=== PATIENT | male | born 1990 | race Caucasian/White ===

== ENCOUNTER 2021-12-16 06:00 | Emergency (ER) | payer OTHER ==
[~2021-12-16] VITALS: Ht 177.8 cm; Wt 97.5 kg
[2021-12-17] MEDS ORDERED: Prednisone50 MG PO (06:47)
[2021-12-17] MEDS ORDERED: TRIA15CR3 TOP (06:47)
== END 2021-12-16 07:58 | disposition home or self-care (01) ==
LOC: ER 06:00
DX: L23.7 Allergic contact dermatitis due to plants, except food (principal)
CPT/HCPCS: 96372; 99282-25; J3301

== ENCOUNTER 2021-12-17 06:02 | Emergency (ER) | payer OTHER ==
[~2021-12-17] VITALS: Ht 177.8 cm; Wt 97.5 kg
[2021-12-17] MEDS ORDERED: TRIA15CR3 TOP (06:47)
[2021-12-17] MEDS ORDERED: Prednisone50 MG PO (06:47)
== END 2021-12-17 07:04 | disposition home or self-care (01) ==
LOC: ER 06:02
DX: L23.7 Allergic contact dermatitis due to plants, except food (principal)
CPT/HCPCS: 96372; 99282-25; A9270; J7512

== ENCOUNTER 2023-08-10 08:45 | Emergency (ER) | payer OTHER ==
[~2023-08-10] VITALS: Ht 177.8 cm; Wt 90.7 kg
[~2023-08-10 08:45] MED LIST: Prednisone50 MG PO; TRIA15CR3 TOP
[2023-08-10 09:27] VITALS: BP 128/78
== END 2023-08-10 09:56 | disposition home or self-care (01) ==
LOC: ER 08:45
DX: S20.361A Insect bite (nonvenomous) of right front wall of thorax, initial encounter (principal); W57.XXXA Bitten or stung by nonvenomous insect and other nonvenomous arthropods, initial encounter; Y99.0 Civilian activity done for income or pay
CPT/HCPCS: 99282; A9270

== ENCOUNTER → 2024-11-26 | Outpatient (CLI) | payer OTHER ==
[2024-11-26 19:30] LABS: BASOPHILS ABSOLUTE AUTO 0.06 K/mm3 (0.00-0.23); BASOPHILS PERCENT AUTO 1 % (0-2); EOSINOPHILS ABSOLUTE AUTO 0.36 K/mm3 (0.00-0.68); EOSINOPHILS PERCENT AUTO 6 % (0-6); Hematocrit 40.8 % (37.0-53.0); Hemoglobin 14.7 g/dL (13.5-17.5); IMMATURE GRAN ABSOLUTE AUTO 0.01 K/mm3 (0.00-0.10); IMMATURE GRAN PERCENT AUTO 0 % (0-1); LYMPHOCYTES ABSOLUTE AUTO 2.33 K/mm3 (0.84-5.20); LYMPHOCYTES PERCENT AUTO 36 % (21-46); MONOCYTES ABSOLUTE AUTO 0.46 K/mm3 (0.16-1.47); MONOCYTES PERCENT AUTO 7 % (4-13); Mean Corpuscular HGB 30.8 pg (26.0-34.0); Mean Corpuscular Volume 85 fL (80-100); Mean Platelet Volume 9.6 fL (9.1-12.4); NEUTROPHILS ABSOLUTE AUTO 3.35 K/mm3 (1.96-9.15); NEUTROPHILS PERCENT AUTO 51 % (41-73); Platelet Count 343 K/mm3 (150-400); RDW Coefficient Variation 12.5 % (11.7-14.2); RDW Standard Deviation 38.9 fL (35.1-46.3); Red Blood Cell Count 4.78 M/mm3 (4.30-5.90); White Blood Cell Count 6.57 K/mm3 (4.00-11.30)
[2024-11-26 20:42] LABS: Alanine Aminotransfer (ALT/SGP 34 U/L (12-78); Albumin, Blood 4.1 g/dL (3.4-5.0); Albumin/Globulin Ratio 1.2 (0.8-1.8); Alk Phos 38 U/L (50-136); Anion Gap 9 mmol/L (3-11); Aspartate Aminotrans (AST/SGOT 29 U/L (12-37); Bilirubin, Total 0.4 mg/dL (0.1-1.0); Blood Urea Nitrogen 20 mg/dL (8-24); Bun/Creatinine Ratio 18.5 (12.0-20.0); CHOL/HDL RATIO 5.5; CO2, Blood 28 mmol/L (21-32); Chloride, Blood 102 mmol/L (98-108); Cholesterol 274 mg/dL (50-200); Creatinine, Blood 1.08 mg/dL (0.60-1.20); Globulin, Blood 3.5 g/dL (2.2-4.0); Glomerular Filtration Rate 91 (60-); Glucose, Blood 93 mg/dL (70-99); HDL Cholesterol 50 mg/dL (>39); LDL/HDL RATIO 3.8; Low Density Lipoprotein Chol 191 mg/dL (0-110); Potassium, Blood 4.2 mmol/L (3.5-5.5); Sodium, Blood 135 mmol/L (136-145); Total Protein, Blood 7.6 g/dL (6.4-8.2); Triglycerides 166 mg/dL (30-140); Very Low Density Lipoprot Chol 33 mg/dL (6-28)
== END ==
LOC: LAB 19:05 → LAB SHORT 19:05
DX: Z00.00 Encounter for general adult medical examination without abnormal findings (principal)
CPT/HCPCS: 80053; 80061; 83036; 85025